=== PATIENT | male | born 1960 | race Caucasian/White ===

== ENCOUNTER → 2023-04-01 | Outpatient (CLI) | payer BC ==
[2023-04-01 14:06] LABS: BASOPHILS % (AUTO) 0 % (0-10); EOSINOPHILS # (AUTO) 0.1 10^3/uL (0.0-0.3); EOSINOPHILS % (AUTO) 0 % (0-10); HEMATOCRIT 50 % (40-54); HEMOGLOBIN 17.1 g/dL (13.3-17.7); LYMPHOCYTES # (AUTO) 1.3 10^3/uL (1.0-4.0); LYMPHOCYTES % (AUTO) 11 % (12-44); MEAN CORPUSCULAR HEMOGLOBIN 30 pg (25-34); MEAN CORPUSCULAR HGB CONC 34 g/dL (32-36); MEAN CORPUSCULAR VOLUME 89 fL (80-99); MEAN PLATELET VOLUME 8.7 fL (9.0-12.2); MONOCYTES # (AUTO) 1.1 10^3/uL (0.0-1.0); MONOCYTES % (AUTO) 10 % (0-12); NEUTROPHILS # (AUTO) 8.9 10^3/uL (1.8-7.8); NEUTROPHILS % (AUTO) 78 % (42-75); PLATELET COUNT 193 10^3/uL (130-400); WHITE BLOOD COUNT 11.4 10^3/uL (4.3-11.0)
[2023-04-01 14:11] LABS: ALBUMIN 4.6 GM/DL (3.2-4.5); CHLORIDE 103 MMOL/L (98-107); POTASSIUM 4.5 MMOL/L (3.6-5.0); SODIUM 141 MMOL/L (135-145)
[2023-04-01 14:12] LABS: CALCIUM 9.9 MG/DL (8.5-10.1)
[2023-04-01 14:13] LABS: GLUCOSE 113 MG/DL (70-105); TOTAL PROTEIN 8.5 GM/DL (6.4-8.2)
[2023-04-01 14:14] LABS: CARBON DIOXIDE 24 MMOL/L (21-32)
[2023-04-01 14:15] LABS: BILIRUBIN,TOTAL 0.8 MG/DL (0.1-1.0)
[2023-04-01 14:17] LABS: ALKALINE PHOSPHATASE 74 U/L (40-136); CREATININE SERUM 1.34 MG/DL (0.60-1.30); GFR ESTIMATED 60
[2023-04-01 14:18] LABS: BUN/CREATININE RATIO 10
[2023-04-01 14:20] LABS: ALANINE AMINOTRANSFERASE 23 U/L (0-55)
== END ==
LOC: EDBD 13:43 → LAB 13:43
PROVIDERS: ATTEND Registered Nurse Critical Care Medicine
DX: J01.80 Other acute sinusitis (principal); R09.81 Nasal congestion
CPT/HCPCS: 36415; 80053; 85025; 86738